=== PATIENT | male | born 1975 ===

== ENCOUNTER 2017-05-07 23:55 | Observation (INO) | payer BC ==
[2017-05-08 00:02] VITALS: BMI 32.8
--- NOTE | 2017-05-08 00:10 | PDOC ---
History of Present Illness - General Chief Complaint: Pain, Acute Stated Complaint: CHEST PAIN/HYPERTENSION Time Seen by Provider: 05/07/17 23:57 History Source: Patient Exam Limitations: No Limitations - History of Present Illness Initial Comments: 05/08/17 00:20 This is a 41-year-old male who comes in complaining of left-sided intermittent sharp chest pain. Patient said when the chest pain comes it last a few seconds and then resolves. Patient said it is been going on for a couple a days. Patient denies any associated symptoms of nausea, diaphoresis, radiation or any other symptoms. Patient has a history of hypertension high cholesterol and obesity. Patient is not a smoker denies family history of coronary artery disease. PAST MEDICAL HISTORY: no significant history PAST SURGICAL HISTORY: no significant history FAMILY HISTORY: no pertinant history SOCIAL HISTORY: Pt lives with family and is employed. MEDICATIONS: reviewed ALLERGIES: As per nursing notes Review of Systems General: No fevers or chills, no weakness, no weight loss HEENT: No change in vision. No sore throat,. No ear pain CardioVascular: Chest pain or shortness of breath Respiratory:No cough, or wheezing. Gastrointestinal: no nausea, vomitting, diarrhea or constipation, No rectal bleeding Genitourinary: No dysuria, hematuria, or frequency Musculoskeletal: No joint or muscle pain or swelling Neurologic: No headache, vertigo, dizziness or loss of consciousness Psychiatric: nor depression Skin: No rashes or easy bruising Endocrine: no increased thirst or abnormal weight change Allergic: no skin or latex allergy All other systems reviewed and normal Exam: General: Well-nourished well-developed individual, no acute distress HEENT: Throat: Normal, tonsils normal, no erythema or exudate Neck: Supple, no meningeal signs, no lymphadenopathy Eyes::Pupils equal reactive and round, extraocular motion intact Chest: Nontender to palpation Cardiac: S1-S2 normal, regular rate and rhythm, no murmurs rubs or gallops Respiratory: Lungs clear to auscultation bilateral Abdomen: Soft, nondistended, normal bowel sounds, nontender to palpation diffusely Extremities: Warm, dry, no cyanosis, clubbing, or edema Skin: No rashes Neuro: Alert and oriented x3, nonfocal exam, grossly intact, normal gait Psych: Normal mood and affect EKG normal sinus rhythm at a rate of 77, there is some flattening of the T's laterally in V4 through V6. There is no acute ST-T wave changes. Chest x-ray no acute pathology 05/08/17 00:28 Assessment and plan: This is a 41-year-old male comes in sent complaining of intermittent episodes of brief left-sided chest pain. Patient has a hard score 4. Patient has some flattening of the T's laterally suggesting lateral ischemia and is cardiogenic scrambled otherwise his workup is unremarkable. Patient will be admitted to a observation bed upstairs for further evaluation Past History - Past Medical History Allergies/Adverse Reactions: Allergies Allergy/AdvReac Type Severity Reaction Status Date / Time No Known Allergies Allergy Verified 05/07/17 23:56 Home Medications: Ambulatory Orders Allopurinol 300 mg PO DAILY 05/07/17 Levothyroxine [Synthroid -] 125 mcg PO DAILY 05/07/17 *Physical Exam - Vital Signs Last Vital Signs Temp Pulse Resp BP Pulse Ox 98.2 F 71 19 96/64 100 05/08/17 06:00 05/08/17 06:00 05/08/17 06:00 05/08/17 06:00 05/08/17 06:00 Heart Score/ECG Review - History History: Slightly suspicious - Electrocardiogram EKG: Significant ST-depression - Age Age: </= 45 - Risk Factors Based on the list above the patient has:: >/=3 risk factors or Hx atherosclerotic disease - Troponin Troponin: </= normal limit - Score Heart Score - Total: 4 ED Treatment Course - LABORATORY CBC & Chemistry Diagram: 05/08/17 00:20 05/08/17 00:20 - ADDITIONAL ORDERS Additional order review: Laboratory Results 05/08/17 05/08/17 00:30 00:20 Sodium 141 Potassium 4.0 Chloride 103 Carbon Dioxide 29 Anion Gap 9 BUN 18 Creatinine 1.3 Creat Clearance w eGFR > 60 Random Glucose 92 Calcium 9.0 Total Bilirubin 0.8 AST 20 ALT 37 Alkaline Phosphatase 91 Creatine Kinase 233 Creatine Kinase Index 0.5 CK-MB (CK-2) 1.184 Troponin I 0.04 Total Protein 7.9 Albumin 4.3 Urine Color Straw Urine Appearance Clear Urine pH 7.0 Urine Protein Negative Urine Glucose (UA) Negative Urine Ketones Negative Urine Blood Negative Urine Nitrite Negative Urine Bilirubin Negative Urine Urobilinogen Negative Ur Leukocyte Esterase Negative 05/08/17 00:20 RBC 5.24 MCV 83.4 MCHC 33.5 RDW 14.4 MPV 10.8 Neutrophils % 45.9 Lymphocytes % 40.7 H Monocytes % 7.6 Eosinophils % 4.8 H Basophils % 1.0 - RADIOLOGY Radiology Studies Ordered: Category Date Time Status CHEST X-RAY PORTABLE* [RAD] Stat Radiology 05/08/17 00:25 Taken - Medications Given in the ED: ED Medications Discontinued Medications Generic Name Dose Route Start Last Admin Trade Name Freq PRN Reason Stop Dose Admin Aspirin 325 mg 05/08/17 00:26 05/08/17 00:15 Asa - PO 05/08/17 00:27 325 mg ONCE ONE Administration Nitroglycerin 1 inch 05/08/17 00:27 05/08/17 00:29 Nitro-Bid 2% Paste - TD 05/08/17 00:28 1 inch ONCE ONE Administration *DC/Admit/Observation/Transfer Diagnosis at time of Disposition: Chest pain - Discharge Dispostion Condition at time of disposition: Stable Admit: Yes Decision to Admit order Date/Time: Decision to Admit Order Category Date Time Status Decision to Admit to Hospital Routine Admission 05/08/17 01:58 Active
[2017-05-08] MEDS ORDERED: ASPIRIN 325 MG TABLET ONE (00:17)
[2017-05-08] MEDS ORDERED: NITROGLYCERIN 2% OINTMENT - 1GM PACKET TD ONE ×2 (00:17→00:27)
[2017-05-08] MEDS ORDERED: ASPIRIN 81 MG CHEWABLE TABLETS PO ONE (00:26)
[2017-05-08 01:12] LABS: URINE APPEARANCE CLEAR; URINE BILIRUBIN NEGATIVE (NEGATIVE); URINE BLOOD NEGATIVE (NEGATIVE); URINE COLOR STRAW; URINE GLUCOSE (UA) NEGATIVE (NEGATIVE); URINE KETONE NEGATIVE (NEGATIVE); URINE LEUK ESTERASE NEGATIVE (NEGATIVE); URINE NITRITE NEGATIVE (NEGATIVE); URINE PROTEIN NEGATIVE (NEGATIVE); URINE UROBILINOGEN NEGATIVE mg/dL (0.2-1.0)
[2017-05-08 01:16] LABS: EOSINOPHIL 4.8 % (0-4.5); MCH 27.9 pg (25.7-33.7); MCHC 33.5 g/dl (32.0-35.9); MEAN CELL VOLUME 83.4 fl (80-96); MEAN PLT VOLUME 10.8 fl (7.5-11.1); NEUTROPHILS 45.9 % (42.8-82.8); PLATELET COUNT 184 K/MM3 (134-434); RDW 14.4 % (11.9-15.9); WHITE BLOOD COUNT 9.6 K/mm3 (4.0-10.0)
[2017-05-08 01:40] LABS: ALBUMIN 4.3 g/dl (3.4-5.0); ANION GAP 9 (8-16); BILIRUBIN,TOTAL 0.8 mg/dL (0.2-1.0); CO2 29 mmol/L (21-32); CREATININE 1.3 mg/dL (0.7-1.3); GLUCOSE,RANDOM 92 mg/dL (74-106); SGOT/AST 20 U/L (15-37); SGPT/ALT 37 U/L (12-78); TOT PROT 7.9 g/dl (6.4-8.2)
[2017-05-08 01:42] LABS: ALK PHOS 91 U/L (45-117); CPK 233 IU/L (39-308); TROPONIN I 0.04 ng/ml (0.00-0.05)
[2017-05-08 06:37] VITALS: TEMP 98.2
[2017-05-08] MEDS ORDERED: LEVOTHYROXINE NA 125 MCG TABLET (FP) PO SCH (07:00)
[2017-05-08 08:02] LABS: ANION GAP 5 (8-16); CO2 25 mmol/L (22-28); GLUCOSE,RANDOM 129 mg/dl (74-106); MAGNESIUM 2.2 mg/dL (1.8-2.4); PHOSPHOROUS 4.2 mg/dl (2.5-4.6)
[2017-05-08 08:08] LABS: BASOPHIL 1.5 % (0-2.0); EOSINOPHIL 5.8 % (0-4.5); MCH 27.2 pg (25.7-33.7); MCHC 33.2 g/dl (32.0-35.9); MEAN CELL VOLUME 81.9 fl (80-96); MEAN PLT VOLUME 10.9 fl (7.5-11.1); NEUTROPHILS 48.4 % (42.8-82.8); PLATELET COUNT 170 K/MM3 (134-434); RDW 13.4 % (11.9-15.9); WHITE BLOOD COUNT 8.4 K/mm3 (4.0-10.8)
[2017-05-08] MEDS ORDERED: ACETAMINOPHEN 325 MG TABLET (FP) ONE (08:39)
--- NOTE | 2017-05-08 08:39 | HP ---
CHIEF COMPLAINT: left sided chest pain PCP: no pcp HISTORY OF PRESENT ILLNESS: patient is a 41 y/o male with a past medical history of hypertension (no medications) and hypothyroidism. Patient reports yesterday at 10pm he was resting at home and developed a squeezing sensation to the center of the chest then approximately 30minutes later he developed a sharp poking sensation to the left side of the chest. As a result, he sought evaluation in the emergency department. ER course was notable for: (1) chest pain resolved in ED after nitroglycerin (2) ekg nsr flattened t waves on inferior lateral leads (3) troponin x 1 wnl Recent Travel: none PAST MEDICAL HISTORY: hypertension and hypothyroidism PAST SURGICAL HISTORY: none Social History: employed marketing, resides at home with Smoking: none Alcohol:none Drugs: none Family History: mother-hypertension alive and well father- hypertension alive and well Allergies No Known Allergies Allergy (Verified 05/07/17 23:56) HOME MEDICATIONS: Home Medications Medication Instructions Recorded Allopurinol 300 mg PO DAILY 05/07/17 Levothyroxine [Synthroid -] 125 mcg PO DAILY 05/07/17 REVIEW OF SYSTEMS CONSTITUTIONAL: Absent: fever, chills, diaphoresis, generalized weakness, malaise, loss of appetite, weight change HEENT: Absent: rhinorrhea, nasal congestion, throat pain, throat swelling, difficulty swallowing, mouth swelling, ear pain, eye pain, visual changes CARDIOVASCULAR: present: chest pain Absent: syncope, palpitations, irregular heart rate, lightheadedness, peripheral edema RESPIRATORY: Absent: cough, shortness of breath, dyspnea with exertion, orthopnea, wheezing, stridor, hemoptysis GASTROINTESTINAL: Absent: abdominal pain, abdominal distension, nausea, vomiting, diarrhea, constipation, melena, hematochezia GENITOURINARY: Absent: dysuria, frequency, urgency, hesitancy, hematuria, flank pain, genital pain MUSCULOSKELETAL: Absent: myalgia, arthralgia, joint swelling, back pain, neck pain SKIN: Absent: rash, itching, pallor HEMATOLOGIC/IMMUNOLOGIC: Absent: easy bleeding, easy bruising, lymphadenopathy, frequent infections ENDOCRINE: Absent: unexplained weight gain, unexplained weight loss, heat intolerance, cold intolerance NEUROLOGIC: Absent: headache, focal weakness or paresthesias, dizziness, unsteady gait, seizure, mental status changes, bladder or bowel incontinence PSYCHIATRIC: Absent: anxiety, depression, suicidal or homicidal ideation, hallucinations. PHYSICAL EXAMINATION Vital Signs - 24 hr 05/08/17 05/08/17 05/08/17 02:17 06:00 08:09 Temperature 98.3 F 98.2 F Pulse Rate 65 71 Respiratory 18 19 Rate Blood Pressure 133/82 96/64 O2 Sat by Pulse 100 100 Oximetry (%) GENERAL: obese, Awake, alert, and fully oriented, in no acute distress. HEAD: Normal with no signs of trauma. EYES: Pupils equal, round and reactive to light, extraocular movements intact, sclera anicteric, conjunctiva clear. No lid lag. EARS, NOSE, THROAT: Ears normal, nares patent, oropharynx clear without exudates. Moist mucous membranes. NECK: Normal range of motion, supple without lymphadenopathy, JVD, or masses. LUNGS: Breath sounds equal, clear to auscultation bilaterally. No wheezes, and no crackles. No accessory muscle use. HEART: Regular rate and rhythm, normal S1 and S2 without murmur, rub or gallop. ABDOMEN: Soft, nontender, not distended, normoactive bowel sounds, no guarding, no rebound, no masses. No hepatomegaly or splenomegaly. MUSCULOSKELETAL: Normal range of motion at all joints. No bony deformities or tenderness. No CVA tenderness. UPPER EXTREMITIES: 2+ pulses, warm, well-perfused. No cyanosis. No clubbing. No peripheral edema. LOWER EXTREMITIES: 2+ pulses, warm, well-perfused. No calf tenderness. No peripheral edema. NEUROLOGICAL: Cranial nerves II-XII intact. Normal speech. Normal gait. PSYCHIATRIC: Cooperative. Good eye contact. Appropriate mood and affect. SKIN: Warm, dry, normal turgor, no rashes or lesions noted, normal capillary refill. Laboratory Results - last 24 hr 05/08/17 05/08/17 07:00 07:00 WBC 8.4 RBC 4.86 Hgb 13.2 Hct 39.8 MCV 81.9 MCH 27.2 MCHC 33.2 RDW 13.4 Plt Count 170 MPV 10.9 Neutrophils % 48.4 Lymphocytes % 37.1 Monocytes % 7.2 Eosinophils % 5.8 H Basophils % 1.5 Sodium 138 Potassium 3.6 Chloride 108 H Carbon Dioxide 25 Anion Gap 5 L BUN 18 Creatinine 1.0 Random Glucose 129 H Calcium 9.0 Phosphorus 4.2 Magnesium 2.2 ASSESSMENT/PLAN: 1) card chest pain r/o acs - troponin x 1 wnl, pending 2nd and 3rd - continue asa daily - repeat ekg, nsr nonspecific st abnormality unchanged from prior ekg - continous cardiac monitoring hypertension - no home meds, strict b/p monitoirng, b/p at goal 2) endo hypothyroidism -continue levothyroxine, home dose - pending tsh f/e/n - low sodium diet - replete lytes prn ppx - pepcid - oob dispo: requires 24 hour tele obsv Visit type - Emergency Visit Emergency Visit: Yes ED Registration Date: 05/08/17 Care time: The patient presented to the Emergency Department on the above date and was hospitalized for further evaluation of their emergent condition. - New Patient This patient is new to me today: Yes Date on this admission: 05/08/17 - Critical Care Critical Care patient: No
[2017-05-08 08:44] LABS: CPK 155 IU/L (39-308)
[2017-05-08 09:08] LABS: TROPONIN I (DFP) < 0.03 ng/ml (0.03-0.50)
[2017-05-08] MEDS ORDERED: POTASSIUM CHLORIDE TABS 20 MEQ TABLET.ER (FP) PO ONE (09:35)
[2017-05-08] MEDS ORDERED: FAMOTIDINE 20 MG TABLET PO SCH (10:00)
[2017-05-08] MEDS ORDERED: ALLOPURINOL 300 MG TABLET (FP) PO SCH (10:00)
--- NOTE | 2017-05-08 12:48 | DS ---
Physical Exam: SUBJECTIVE: Patient seen and examined, OBJECTIVE:patient is a 41 y/o male with a past medical history of hypertension ( no medications) and hypothyroidism. Patient reports yesterday at 10pm he was resting at home and developed a squeezing sensation to the center of the chest then approximately 30minutes later he developed a sharp poking sensation to the left side of the chest. As a result, he sought evaluation in the emergency department. ER course was notable for: (1) chest pain resolved in ED after nitroglycerin (2) ekg nsr flattened t waves on inferior lateral leads (3) troponin x 1 wnl Vital Signs Period Temp Pulse Resp BP Sys/[place] Pulse Ox Last 24 Hr 98.2 F-98.3 F 65-71 18-19 96-133/64-82 100-100 PHYSICAL EXAM GENERAL: The patient is awake, alert, and fully oriented, in no acute distress. HEAD: Normal with no signs of trauma. EYES: PERRL, extraocular movements intact, sclera anicteric, conjunctiva clear. ENT: Ears normal, nares patent, oropharynx clear without exudates, moist mucous membranes. NECK: Trachea midline, full range of motion, supple. LUNGS: Breath sounds equal, clear to auscultation bilaterally, no wheezes, no crackles, no accessory muscle use. HEART: Regular rate and rhythm, S1, S2 without murmur, rub or gallop. ABDOMEN: Soft, nontender, nondistended, normoactive bowel sounds, no guarding, no rebound, no hepatosplenomegaly, no masses. EXTREMITIES: 2+ pulses, warm, well-perfused, no edema. NEUROLOGICAL: Cranial nerves II through XII grossly intact. Normal speech, gait not observed. PSYCH: Normal mood, normal affect. SKIN: Warm, dry, normal turgor, no rashes or lesions noted. LABS Laboratory Results - last 24 hr 05/08/17 05/08/17 05/08/17 07:00 07:00 07:00 WBC 8.4 RBC 4.86 Hgb 13.2 Hct 39.8 MCV 81.9 MCH 27.2 MCHC 33.2 RDW 13.4 Plt Count 170 MPV 10.9 Neutrophils % 48.4 Lymphocytes % 37.1 Monocytes % 7.2 Eosinophils % 5.8 H Basophils % 1.5 Sodium 138 Potassium 3.6 Chloride 108 H Carbon Dioxide 25 Anion Gap 5 L BUN 18 Creatinine 1.0 Random Glucose 129 H Calcium 9.0 Phosphorus 4.2 Magnesium 2.2 Creatine Kinase 155 Creatine Kinase Index 0.9 CK-MB (CK-2) 1.4 Troponin I < 0.03 L HOSPITAL COURSE: * Patient was admitted from the emergency department to observation for chest pain r/o acs. troponin x 3 wnl. patient was placed on asa daily. * repeat ekg, nsr nonspecific st abnormality unchanged from prior ekg * continuous cardiac monitoring, no dysarhythmia was noted * pmh of hypertension, no home meds, strict b/p monitoirng, b/p at goal * pmh of hypothyroidism, levothyroxine continued at home dose PLAN - case discussed with Dr martinez,cardiology, advised outpatient follow up - continue asa daily Date of Admission:05/08/17 Date of Discharge: 05/08/17 Minutes to complete discharge: 45 Discharge Summary Reason For Visit: CHEST PAIN/HYPERTENSION Current Active Problems Chest pain (Acute) Condition: Stable - Instructions Diet, Activity, Other Instructions: resume low sodium diet continue taking asa daily continue all medications as prescribed please keep follow up appointment with the adjustment clerk, Dr Martinez that is scheduled for 05/10/17 at 3pm, please bring your insurance card with you. please follow up with your primary care physician within 1 week, if any new or persistent symptoms develops please return to the emergency department Referrals: Ankur Martinez MD [Staff Physician] - Han Wagner MD [Staff Physician] - - Home Medications Comprehensive Discharge Medication List: Ambulatory Orders Allopurinol 300 mg PO DAILY 05/07/17 Levothyroxine [Synthroid -] 125 mcg PO DAILY 05/07/17
--- NOTE | 2017-05-08 12:56 | EKG ---
Test Reason : Blood Pressure : / mmHG Vent. Rate : 069 BPM Atrial Rate : 069 BPM P-R Int : 216 ms QRS Dur : 084 ms QT Int : 390 ms P-R-T Axes : 051 017 049 degrees QTc Int : 417 ms SINUS RHYTHM WITH 1ST DEGREE A-V BLOCK POSSIBLE LEFT ATRIAL ENLARGEMENT NONSPECIFIC ST AND T WAVE ABNORMALITY LEFT VENTRICULAR HYPERTROPHY ABNORMAL ECG NO PREVIOUS ECGS AVAILABLE Confirmed by SYLVESTER DEAN MD ([id number] on 05/08/2017 12:56:12 PM Referred By: DR Xiomara ROLDAN Confirmed By:SYLVESTER DEAN MD
[2017-05-08 13:06] LABS: CPK 141 IU/L (39-308)
[2017-05-08 13:37] LABS: TROPONIN I (DFP) < 0.03 ng/ml (0.03-0.50)
[2017-05-08 13:50] VITALS: BP 126/73; PULSE 72
[2017-05-08 17:44] LABS: THYROXINE (T4) 9.5 ug/dl (4.5-12.1)
[2017-05-08 17:51] LABS: THYROID STIMULATING HORMONE 1.05 uIU/ml (0.358-3.74)
== END 2017-05-08 14:25 | disposition home or self-care (01) ==
LOC: FER 23:55 → FM/S 05-08 02:01
PROVIDERS: ADMIT Internal Medicine; ATTEND Nurse Practitioner Family
DX: R07.9 Chest pain, unspecified (principal); E03.9 Hypothyroidism, unspecified; I10 Essential (primary) hypertension
CPT/HCPCS: 36415; 71010-TC; 80048; 80053; 81003; 82553; 83735; 84100; 84436; 84443; 84484; 85025; 93005; 99284-25; G0378